=== PATIENT | female | born 1935 | race Caucasian/White ===

== ENCOUNTER 2018-08-29 07:22 | Day surgery (SDC) | payer MEDICARE, BC ==
[2018-08-26 15:22] VITALS: BMI 28.8
[~2018-08-29 07:22] MED LIST: HEPARIN SODIUM,PORCINE 5,000 UNIT/ML 1 ML VIAL SQ ONE; HYDROmorphone 0.5 MG/0.5 ML SYRINGE IVP PRN; LACTATED RINGERS 1,000 ML IV SCH; LIDOCAINE 1% 20 ML VIAL (10MG/ML) FOR IV START INTRADERMA PRN; ONDANSETRON 4 MG/2 ML VIAL IVP ONE; Pre Op ABX Message 1 EACH MISC MISCELLANE ONE
[2018-08-29 07:49] VITALS: TEMP 99.1
--- NOTE | 2018-08-29 08:34 | P.GSHP ---
History of Present Illness H&P Date: 08/29/18 Chief Complaint: Left chest wall mass. This is a 82-year-old female who presents today for biopsy of a left chest wall mass. Patient has developed a mass next to her fourth left rib. On the anterior chest wall. Past Medical History Past Medical History: Eye Disorder, Hearing Disorder / Deafness, Osteoarthritis (OA), Rheumatoid Arthritis (RA), Skin Disorder Additional Past Medical History / Comment(s): CONE DYSTROPHY SINDHU EYES. OVERACTIVE BLADDER. LUMP LT 4TH RIB AREA. History of Any Multi-Drug Resistant Organisms: None Reported Past Surgical History: Hysterectomy, Orthopedic Surgery Additional Past Surgical History / Comment(s): PARTIAL HYSTERECTOMY. SINDHU CTR X2. KNEE SCOPE. Past Anesthesia/Blood Transfusion Reactions: No Reported Reaction Smoking Status: Never smoker - Past Family History Mother Sister(s) Family Medical History: Cancer Medications and Allergies Home Medications Medication Instructions Recorded Confirmed Type Acetaminophen [Tylenol Extra 500 - 1,000 mg PO Q6H PRN 08/26/18 08/29/18 History Strength] Aspirin [Adult Low Dose Aspirin EC] 81 mg PO DAILY 08/26/18 08/26/18 History Methotrexate Sodium [Methotrexate] 25 mg PO TU 08/26/18 08/29/18 History Oxybutynin Chloride [Ditropan] 5 mg PO DAILY 08/26/18 08/29/18 History Allergies Allergy/AdvReac Type Severity Reaction Status Date / Time No Known Allergies Allergy Verified 08/26/18 14:59 Surgical - Exam Vital Signs Temp Pulse Resp BP Pulse Ox 99.1 F 106 H 18 132/64 95 08/29/18 07:48 08/29/18 07:48 08/29/18 07:48 08/29/18 07:48 08/29/18 07:48 - General well developed, no distress - Eyes PERRL - ENT normal pinna - Neck no masses - Respiratory 3 x 5 cm area of firmness along the left fourth rib normal expansion - Cardiovascular Rhythm: regular - Abdomen Abdomen: soft, non tender Assessment and Plan Assessment: Left chest wall mass. We'll perform excisional biopsy.
[2018-08-29] MEDS ORDERED: ePHEDrine SULFATE/0.9% NACL/PF 50 MG/5 ML SYRINGE IV ONE (08:56)
[2018-08-29] MEDS ORDERED: ceFAZolin 1,000 MG VIAL ONE (08:56)
[2018-08-29] MEDS ORDERED: MIDAZOLAM 2 MG/2 ML VIAL ONE (08:56)
[2018-08-29] MEDS ORDERED: LIDOCAINE 1% INJ 10MG/ML (20 ML MDV) ONE (08:56)
[2018-08-29] MEDS ORDERED: fentaNYL (PF) 50 MCG/ML 2 ML AMP ONE (08:56)
[2018-08-29] MEDS ORDERED: PROPOFOL 10 MG/ML 20 ML VIAL IV ONE (08:56)
[2018-08-29] MEDS ORDERED: BUPIVACAIN-EPI 0.25%-1:200,000 30 ML VIAL SQ ONE ×2 (09:13→09:23)
[2018-08-29] MEDS ORDERED: SODIUM CHLORIDE 0.9% 50 ML with ceFAZolin 2,000 MG IV ONE ×2 (09:23)
--- NOTE | 2018-08-29 10:14 | P.OP ---
Date of Procedure: 08/29/18 Preoperative Diagnosis: Left chest wall mass Postoperative Diagnosis: Deferred to pathology Procedure(s) Performed: Biopsy of left chest wall mass Anesthesia: AKIRA Surgeon: Bernardino Bond Estimated Blood Loss (ml): 5 Pathology: other (Left chest wall mass) Condition: stable Disposition: PACU Description of Procedure: The patient's placed the operative table in the supine position. She received general anesthesia. Her chest was prepped and draped usual fashion. Patient had a left chest wall mass located over the fourth rib. A skin incision was made. Using left cautery the subcutaneous tissue divided. The fascia of the pectoralis was divided. The pectoral muscles were spread and divided along the muscle fibers. The patient had a 3 x 5 cm chest mass. The mass was white in color and had to amorphous appearance. A large portion of the mass was divided using left cautery. It was impossible to remove the entire mass. The specimen sent to pathology. The fascia and muscles closed with 3-0 Vicryl suture once hemostasis was achieved. Skin was closed interrupted 3-0 Monocryl suture. Dermabond was applied. Patient was sent to recovery room stable condition.
[2018-08-29] MEDS ORDERED: ACETAMINOPHEN TAB 500 MG TAB PO ONE (11:14)
[2018-08-29 11:43] VITALS: BP 130/65; PULSE 52; RESP 18
== END 2018-08-29 11:58 | disposition home or self-care (01) ==
LOC: OR 07:22
PROVIDERS: ATTEND Surgery
DX: C83.32 Diffuse large B-cell lymphoma, intrathoracic lymph nodes (principal); H91.90 Unspecified hearing loss, unspecified ear; M19.90 Unspecified osteoarthritis, unspecified site; M06.9 Rheumatoid arthritis, unspecified; L98.9 Disorder of the skin and subcutaneous tissue, unspecified; H57.89 Other specified disorders of eye and adnexa; N32.81 Overactive bladder; N39.3 Stress incontinence (female) (male); Z79.82 Long term (current) use of aspirin; Z79.899 Other long term (current) drug therapy; Z90.710 Acquired absence of both cervix and uterus
CPT/HCPCS: 21550; J2250; J1644; J2405; J0690 ×2; J2001; J3010; J2704; 88305; 88341; 88342

== ENCOUNTER → 2018-09-12 | Outpatient (CLI) | payer MEDICARE, BC ==
--- NOTE | 2018-09-13 11:21 | ECHOF ---
Referral Reason:[id number] Encounter for other preprocedural examinat MEASUREMENTS -------- HEIGHT: 154.9 cm WEIGHT: 74.8 kg BP: 149/101 RVIDd: 2.7 cm (< 3.3) IVSd: 1.1 cm (0.6 - 1.1) LVIDd: 4.3 cm (3.9 - 5.3) LVPWd: 0.9 cm (0.6 - 1.1) IVSs: 1.6 cm LVIDs: 2.7 cm LVPWs: 1.3 cm LA Diam: 2.9 cm (2.7 - 3.8) LAESV Index (A-L): 19.55 ml/m Ao Diam: 2.9 cm (2.0 - 3.7) AV Cusp: 1.6 cm (1.5 - 2.6) MV EXCURSION: 10.412 mm (> 18.000) MV EF SLOPE: 75 mm/s (70 - 150) EPSS: 0.9 cm MV E Gerald: 0.74 m/s MV DecT: 340 ms MV A Gerald: 1.05 m/s MV E/A Ratio: 0.71 AV maxP.31 mmHg AV meanP.88 mmHg AR PHT: 743 ms RAP: 5.00 mmHg RVSP: 24.48 mmHg FINDINGS -------- Sinus rhythm. This was a technically adequate study. The left ventricular size is normal. There is borderline concentric left ventricular hypertrophy. Overall left ventricular systolic function is normal with, an EF between 60 - 65 %. The right ventricle is normal in size. Normal LA size by volume 22+/-6 ml/m2. The right atrium is normal in size. Aneurysmal Interatrial septum. There is mild aortic valve sclerosis. There is mild aortic regurgitation. Peak/mean gradient acro ss the Aortic Valve is 13.31mmHg / 5.88mmHg. The mitral valve leaflets are mildly thickened. Mild mitral annular calcification present. Mild tricuspid regurgitation present. Right ventricular systolic pressure is normal at < 35 mmHg. There is no pulmonic regurgitation present. The aortic root size is normal. Normal inferior vena cava with normal inspiratory collapse consistent with estimated right atrial pre ssure of 5 mmHg. There is no pericardial effusion. CONCLUSIONS -------- 1. Sinus rhythm. 2. This was a technically adequate study. 3. The left ventricular size is normal. 4. There is borderline concentric left ventricular hypertrophy. 5. Overall left ventricular systolic function is normal with, an EF between 60 - 65 %. 6. The right ventricle is normal in size. 7. Normal LA size by volume 22+/-6 ml/m2. 8. The right atrium is normal in size. 9. Aneurysmal Interatrial septum. 10. There is mild aortic valve sclerosis. 11. There is mild aortic regurgitation. 12. Peak/mean gradient across the Aortic Valve is 13.31mmHg / 5.88mmHg. 13. The mitral valve leaflets are mildly thickened. 14. Mild mitral annular calcification present. 15. Mild tricuspid regurgitation present. 16. Right ventricular systolic pressure is normal at < 35 mmHg. 17. There is no pulmonic regurgitation present. 18. The aortic root size is normal. 19. Normal inferior vena cava with normal inspiratory collapse consistent with estimated right atrial pressure of 5 mmHg. 20. There is no pericardial effusion. [employer]GER: Lise Veliz RDCS
== END ==
LOC: RADECHMAIN 14:50
PROVIDERS: ATTEND Internal Medicine Hematology & Oncology
DX: I08.2 Rheumatic disorders of both aortic and tricuspid valves (principal); I70.8 Atherosclerosis of other arteries
CPT/HCPCS: 93306

== ENCOUNTER → 2018-09-14 | Outpatient (CLI) | payer MEDICARE, BC ==
--- NOTE | 2018-09-18 09:41 | PE ---
[facility] medicine PET/CT HISTORY: Diffuse large B-cell lymphoma, initial Patient received 15 mCi F-18 FDG intravenously in delayed scanning performed from the skull base to t he mid thighs. Localization and attenuation correction CT scan was performed. No comparisons DLP 413.12 mGy centimeters Neck and chest: Neck is unremarkable. No evident adenopathy. Possible mucus retention cyst, inflammat ory changes are present in the bilateral maxillary sinuses. There is a large chest wall mass on the left extending into the breast there is abnormal soft tissue. Chest wall mass shows erosion of the fourth rib, rib destruction anteriorly. Mass measures approxima tely 7.8 x 4.3 cm in the axial plane and extends through the chest into the pleural surface as well a s into the left breast. There is associated hypermetabolic uptake, SUV is 21. No evident lung mass. A scending aorta is borderline aneurysmal at 4.3 cm. There are coronary artery calcifications, mitral a nnular calcification. No endobronchial lesion, pleural or pericardial effusion. Suspect a small hiata l hernia. ABDOMEN: No retroperitoneal adenopathy. No pelvic adenopathy. Uterus and adnexal structures are not s een. Surgical suture present along the anterior abdominal wall. No suspicious hypermetabolic uptake. Osseous structures: There is a focus of hypermetabolic uptake in the proximal metadiaphyseal region o f the right humerus, SUV is 9. Posterior right third rib shows a small focus of activity, SUV is 2.8. IMPRESSION: Findings compatible with lymphoma, possible metastasis to the proximal right humerus, pos terior right third rib. MRI of the right shoulder may be of benefit.
== END ==
LOC: RADPETMAIN 06:43
PROVIDERS: ATTEND Internal Medicine Hematology & Oncology
DX: C83.39 Diffuse large B-cell lymphoma, extranodal and solid organ sites (principal)
CPT/HCPCS: 78815; A9552

== ENCOUNTER 2018-09-30 07:45 | Day surgery (SDC) | payer MEDICARE, BC ==
[~2018-09-30 07:45] MED LIST changes: +DEXAMETHASONE SOD PHOSPHATE 10 MG/ML 1 ML VIAL IV ONE; -ONDANSETRON 4 MG/2 ML VIAL IVP ONE
[2018-09-30 08:17] VITALS: TEMP 97.4
--- NOTE | 2018-09-30 09:04 | P.GSHP ---
History of Present Illness H&P Date: 09/30/18 Chief Complaint: History of lymphoma This 82-year-old female who's recent diagnosis of lymphoma. Patient presents today for Port-A-Cath insertion Past Medical History Past Medical History: Eye Disorder, Hearing Disorder / Deafness, Osteoarthritis (OA), Rheumatoid Arthritis (RA), Skin Disorder Additional Past Medical History / Comment(s): CONE DYSTROPHY SINDHU EYES. OVERACTIVE BLADDER. LUMP LT 4TH RIB AREA-dx lymphoma Aug 2018 History of Any Multi-Drug Resistant Organisms: None Reported Past Surgical History: Hysterectomy, Orthopedic Surgery Additional Past Surgical History / Comment(s): Bx chest wall mass,PARTIAL HYSTERECTOMY. SINDHU CTR X2. KNEE SCOPE,sindhu cataracts Past Anesthesia/Blood Transfusion Reactions: No Reported Reaction Additional Past Anesthesia/Blood Transfusion Reaction / Comment(s): no hx blood transfusion Smoking Status: Never smoker - Past Family History Mother Sister(s) Family Medical History: Cancer Medications and Allergies Home Medications Medication Instructions Recorded Confirmed Type Acetaminophen [Tylenol Extra 500 - 1,000 mg PO Q6H PRN 08/26/18 09/30/18 History Strength] Aspirin [Adult Low Dose Aspirin EC] 81 mg PO DAILY 08/26/18 09/30/18 History Methotrexate Sodium [Methotrexate] 25 mg PO TU 08/26/18 09/30/18 History Oxybutynin Chloride [Ditropan] 5 mg PO DAILY 08/26/18 09/30/18 History Calcium Carbonate [Calcium] 600 mg PO BID 09/26/18 09/30/18 History Cranberry Fruit Extract [Cranberry] 200 mg PO DAILY 09/26/18 09/30/18 History Cranberry Fruit Extract [Cranberry] 200 mg PO DAILY 09/26/18 09/30/18 History Cyanocobalamin [Vitamin B-12] 500 mcg PO DAILY 09/26/18 09/30/18 History Folic Acid 1,200 mcg PO DAILY 09/26/18 09/30/18 History Lutein 20 mg PO DAILY 09/26/18 09/30/18 History Magnesium 500 mg PO DAILY 09/26/18 09/30/18 History Milk Thistle 1,000 mg PO DAILY 09/26/18 09/30/18 History [place]-3/Dha/Epa/Fish Oil [Fish Oil 300 mg PO DAILY 09/26/18 09/30/18 History 500 mg Softgel] Potassium 99 mg PO DAILY 09/26/18 09/30/18 History Turmeric Root Extract [Turmeric] 500 mg PO DAILY 09/26/18 09/30/18 History Ubidecarenone [Co Q-10] 100 mg PO DAILY 09/26/18 09/30/18 History Vitamin B Complex 1 each PO DAILY 09/26/18 09/30/18 History Vitamin E 400 unit PO DAILY 09/26/18 09/30/18 History Allergies Allergy/AdvReac Type Severity Reaction Status Date / Time No Known Allergies Allergy Verified 09/30/18 08:15 Surgical - Exam Vital Signs Temp Pulse Resp BP Pulse Ox 97.4 F L 108 H 16 161/72 94 L 09/30/18 08:09 09/30/18 08:09 09/30/18 08:09 09/30/18 08:09 09/30/18 08:09 - General well developed, well nourished - Eyes PERRL - ENT normal pinna - Neck no masses - Respiratory normal expansion - Cardiovascular Rhythm: regular - Abdomen Abdomen: soft, non tender Assessment and Plan Assessment: Lymphoma. We'll perform Port-A-Cath insertion.
[2018-09-30] MEDS ORDERED: fentaNYL (PF) 50 MCG/ML 2 ML AMP ONE (09:08)
[2018-09-30] MEDS ORDERED: PROPOFOL 10 MG/ML 20 ML VIAL IV ONE (09:08)
[2018-09-30] MEDS ORDERED: KETAMINE 10 MG/ML 20 ML VIAL ONE (09:08)
[2018-09-30] MEDS ORDERED: MIDAZOLAM 2 MG/2 ML VIAL ONE (09:08)
[2018-09-30] MEDS ORDERED: HEPARIN SODIUM,PORCINE 100 UNIT/ML 5 ML VIAL IV ONE ×2 (09:33→09:39)
[2018-09-30] MEDS ORDERED: BUPIVACAIN-EPI 0.25%-1:200,000 30 ML VIAL SQ ONE ×2 (09:33→09:39)
[2018-09-30] MEDS ORDERED: IOPAMIDOL-370 50ML BTL MISCELLANE ONE ×2 (09:34→09:39)
[2018-09-30 10:09] VITALS: PULSE 84
--- NOTE | 2018-09-30 10:10 | FL ---
Fluoroscopy History: port a cath 3 sec fluoro. 1 image scanned.
[2018-09-30 10:40] VITALS: BP 134/73; RESP 18
--- NOTE | 2018-09-30 10:41 | P.OP ---
Date of Procedure: 09/30/18 Preoperative Diagnosis: Lymphoma Postoperative Diagnosis: Lymphoma Procedure(s) Performed: Insertion of right subclavian Port-A-Cath Anesthesia: MAC Surgeon: Bernardino Bond Estimated Blood Loss (ml): 5 Pathology: none sent Condition: stable Disposition: PACU Description of Procedure: PROCEDURE: The patient was placed on the operating table in the supine position. She received MAC anesthetic. The [right] chest was prepped and draped in the usual sterile fashion. The skin underneath the right clavicle was anesthetized with 1% Xylocaine and using Seldinger technique, the right subclavian vein was cannulized. The wire was placed through the needle and positioned under fluoroscopy. Next, the needle was removed and the port site was anesthetized with 1% Xylocaine. Skin was incised with #15 blade and port pocket was made using blunt and sharp dissection. Following this the catheter was attached to the sport and the port was flushed. The port was positioned into the pocket site and was secured with 3-0 Vicryl suture. The catheter was then brought out through the wire site and then the dilator sheath was placed over the wire and the dilator and the wire were removed. The catheter was placed through the sheath and the sheath was removed. The port was flushed with hep-lock solution. Skin was closed with interrupted 3-0 Vicryl sutures. Steri-Strips were applied. The patient tolerated the procedure well. The patient was sent to recovery room for chest x-ray after the procedure.
--- NOTE | 2018-09-30 10:42 | XR ---
EXAMINATION TYPE: XR chest 1V portable DATE OF EXAM: 09/30/2018 HISTORY: Line placement COMPARISON: None. TECHNIQUE: Single view of the chest is submitted. FINDINGS: Right-sided central venous line subclavian approach demonstrates its distal tip overlying the SVC. Th ere is no evidence for pneumothorax. Demonstrated are scattered senescent parenchymal change. Small patchy density right medial lung base may reflect underlying infiltrate. The heart is stable. Hilar and mediastinal structures are within normal limits. Degenerative changes are seen of the dorsal spine. IMPRESSION: 1. Central venous line as noted.
== END 2018-09-30 11:22 | disposition home or self-care (01) ==
LOC: OR 07:45
PROVIDERS: ATTEND Surgery
DX: C85.90 Non-Hodgkin lymphoma, unspecified, unspecified site (principal); H91.90 Unspecified hearing loss, unspecified ear; M06.9 Rheumatoid arthritis, unspecified; N32.81 Overactive bladder; H35.53 Other dystrophies primarily involving the sensory retina; M19.90 Unspecified osteoarthritis, unspecified site; Z90.710 Acquired absence of both cervix and uterus; Z79.82 Long term (current) use of aspirin; Z79.899 Other long term (current) drug therapy
CPT/HCPCS: 36561; 77001; 71045; C1788; J2250; J1644; J1642; J1100; J3010; J2704; Q9967

== ENCOUNTER → 2018-11-09 | Outpatient (CLI) | payer MEDICARE, BC ==
--- NOTE | 2018-11-09 15:18 | PE ---
EXAMINATION TYPE: PET CT fusion skull to thigh DATE OF EXAM: 11/09/2018 COMPARISON: Prior PET/CT September 14, 2018. HISTORY: Lymphoma diagnosed left chest 2018 completed chemotherapy October 28, 2018. TECHNIQUE: Following the intravenous administration of 12.74 mCi of F-18 FDG, whole body images are performed from the skull base to the midthigh. Images are reviewed on the computer in the coronal, a xial, and sagittal planes. Reconstructed rotating images are created on independent workstation and reviewed on the computer. A noncontrast CT is performed in conjunction with the PET scan. SCAN: Subsequent Scan FINDINGS: MEAN SUV MEDIASTINUM: 1.07 MEAN SUV LIVER: 2.02 SKULL BASE AND NECK: No new areas of suspicious hypermetabolic uptake. CHEST, MEDIASTINUM, AND HILAR REGION: There is marked interval improvement in size and hypermetabolic uptake of left medial chest wall mass that was invading pleura on prior study, measures roughly 5.0 x 1.8 cm current study image 77 with mild residual hypermetabolic uptake, max SUV is 2.91. Soft tissu e density extending superiorly and anteriorly is redemonstrated extending to skin surface consistent with known neoplasm. No new hypermetabolic masses or suspicious adenopathy. ABDOMEN AND PELVIS: No splenic or liver enlargement identified. Prominent left hepatic lobe redemonst rated. No new hypermetabolic uptake is identified. No new suspicious adenopathy is seen. Presumed los s of urine inferior to urethral orifice. OSSEOUS STRUCTURES: No suspicious hypermetabolic uptake is present OTHER CT: Redemonstration of S-shaped scoliosis. New right subclavian Mediport catheter terminating in SVC. Mild mucosal thickening bilateral maxillary sinuses with small mucous retention cyst or polyp in the inferior right maxillary sinus all redemonstrated. Mild to moderate generalized atrophy and chronic small vessel ischemic change in visualized brain par enchyma. Ascending aorta measures up to 4.2 cm in diameter on axial image 77 not significant change from prior . Coronary artery calcification is redemonstrated which is noted marker for underlying coronary arter y disease. Mild to moderate calcified plaque of aorta extends into branch vessels. Suspect sutures in the lower abdomen anterior abdominal wall in horizontal fashion. Scattered pelvic phleboliths are seen. IMPRESSION: Marked interval improvement in primary tumor or lymphoma left anterior medial chest wall and proximal right humeral lesion. No new suspicious masses or adenopathy identified.
== END | disposition home or self-care (01) ==
LOC: RADPETMAIN 09:06
PROVIDERS: ATTEND Internal Medicine Hematology & Oncology
DX: C83.39 Diffuse large B-cell lymphoma, extranodal and solid organ sites (principal); Z92.21 Personal history of antineoplastic chemotherapy
CPT/HCPCS: 78815; A9552

== ENCOUNTER → 2019-01-30 | Outpatient (CLI) | payer MEDICARE, BC ==
[2019-01-30 14:05] LABS: African American GFR (CKD) >90 (>60 ml/min/1.73 sqM); Blood Urea Nitrogen 12 mg/dL (7-17)
--- NOTE | 2019-01-30 16:35 | CT ---
EXAMINATION TYPE: CT ChestAbdPelvis w con DATE OF EXAM: 01/30/2019 COMPARISON: PET/CT November 09, 2018 and older PET/CT September 14, 2018. Completed chemotherapy October 28, 2018. HISTORY: Lymphoma, observe for mets. Originally diagnosed left chest August 29, 2018 completed chemo therapy in January CT DLP: 1237 mGycm. Automated Exposure Control for Dose Reduction was Utilized. CONTRAST: CT scan of the thorax, abdomen and pelvis is performed with oral and with IV Contrast, patient inject ed with 100 mL of Isovue 300. FINDINGS: LUNGS: The lungs are grossly clear, there is no concerning parenchymal mass or nodule identified. T here is no pleural effusion or pneumothorax seen. The tracheobronchial tree is patent. MEDIASTINUM: There are no greater than 1 cm hilar or mediastinal lymph nodes. No pericardial effusi on is seen. OTHER: No suspicious axillary adenopathy. Small residual oval soft tissue focus medial left breast m easuring 2.0 x 0.6 cm remains present axial image 16 significantly improved from last 2 studies. LIVER/GB: No significant abnormality is appreciated. PANCREAS: No significant abnormality is seen. SPLEEN: Spleen remains mildly enlarged at 13.4 cm coronal image 66. ADRENALS: No significant abnormality is seen. KIDNEYS: No significant abnormality is seen. BOWEL: Small hiatal hernia is present. GENITAL ORGANS: Scattered pelvic phleboliths. Uterus is surgically absent. LYMPH NODES: No greater than 1cm abdominal or pelvic lymph nodes are appreciated. OSSEOUS STRUCTURES S-shaped scoliotic curvature with mild multilevel spurring. Multilevel disc space narrowing and vacuum disc phenomenon in the lumbar spine. Mild to moderate compression fracture invol ving the superior T10 endplate is new from most recent PET/CT. OTHER: Mild to moderate calcified plaque of aorta extends into branch vessels. IMPRESSION: Continued improvement in medial left anterior chest wall mass or neoplasm. No new adenopa thy or suspicious masses identified..
== END | disposition home or self-care (01) ==
LOC: RADPROMAIN 13:18
PROVIDERS: ATTEND Internal Medicine Hematology & Oncology
DX: C83.39 Diffuse large B-cell lymphoma, extranodal and solid organ sites (principal)
CPT/HCPCS: 82565; 84520; 71260; 74177; 36415; J1642; Q9967

== ENCOUNTER → 2019-05-05 | Outpatient (CLI) | payer MEDICARE, BC ==
--- NOTE | 2019-05-05 10:40 | CT ---
EXAMINATION TYPE: CT ChestAbdPelvis w con DATE OF EXAM: 05/05/2019 COMPARISON: CT January 30, 2019. PET/CT May 12, 2019 and older PET/CT September 14, 2018 HISTORY: Non-Hodgkin lymphoma progress study. CT DLP: 1695 mGycm. Automated Exposure Control for Dose Reduction was Utilized. CONTRAST: CT scan of the thorax, abdomen and pelvis is performed with oral and with IV Contrast, patient inject ed with 100ml mL of Isovue 300. FINDINGS: LUNGS: Stable subcentimeter scarlike opacity right midlung laterally axial image 41. The lungs are gr ossly clear, there is no concerning new parenchymal mass or nodule identified. There is no pleural effusion or pneumothorax seen. The tracheobronchial tree is patent. MEDIASTINUM: There are no greater than 1 cm hilar or mediastinal lymph nodes. No cardiomegaly or pe ricardial effusion is seen. Coronary artery calcification is redemonstrated which is noted marker fo r underlying coronary artery disease. OTHER: Soft tissue lesion over the superior medial left breast near axial image 9 through 11 shows pe rsistent decreased size with only slight level 11 x 3 mm oval nodularity remaining present on image 9 . Stable right internal jugular Mediport catheter terminating in SVC. LIVER/GB: No significant abnormality is appreciated. PANCREAS: No significant abnormality is seen. SPLEEN: Spleen size within normal limits current study felt slightly less prominent versus prior stud ies. ADRENALS: No significant abnormality is seen. KIDNEYS: No significant abnormality is seen. BOWEL: Small hiatal hernia is redemonstrated. GENITAL ORGANS: Uterus is surgically absent or markedly atrophic. Scattered pelvic phleboliths are ag ain seen. LYMPH NODES: No greater than 1cm abdominal or pelvic lymph nodes are appreciated. OSSEOUS STRUCTURES: S-shaped scoliosis with moderate multilevel spurring is again seen. Multilevel va cuum disc phenomenon in the lumbar spine. Mild height loss or chronic compression superior T10 level with sclerosis redemonstrated without interval progression OTHER: Mild to moderate calcified plaque of the aorta extending to the iliac branch vessels is redemo nstrated. IMPRESSION: Continued improvement in left medial anterior chest wall mass or neoplasm. No new mass or adenopathy identified.
== END | disposition home or self-care (01) ==
LOC: RADPROMAIN 07:42
PROVIDERS: ATTEND Internal Medicine Hematology & Oncology
DX: Z03.89 Encounter for observation for other suspected diseases and conditions ruled out (principal); C83.39 Diffuse large B-cell lymphoma, extranodal and solid organ sites; Z95.828 Presence of other vascular implants and grafts
CPT/HCPCS: 82565; 84520; 71260; 74177; J1642; Q9967 ×2

== ENCOUNTER → 2019-08-04 | Outpatient (CLI) | payer MEDICARE, BC ==
--- NOTE | 2019-08-04 12:40 | CT ---
EXAMINATION TYPE: CT ChestAbdPelvis w con DATE OF EXAM: 08/04/2019 COMPARISON: 05/05/2019 HISTORY: Lymphoma CT DLP: 1128.2 mGycm CONTRAST: CT scan of the chest, abdomen and pelvis is performed with Oral Contrast and with IV Contrast, patien t injected with 80 mL of Isovue 300. CT Chest: LUNGS: The lungs are clear and free of infiltrate or atelectasis. No pulmonary nodule or mass is det ected. No pleural effusion or CT evidence of interstitial lung disease. MEDIASTINUM: Thoracic aorta is of normal caliber. The heart is not enlarged. No evidence for media stinal mass or adenopathy. HILAR STRUCTURES: No evidence for mass. No hilar adenopathy is appreciated. OTHER: No chest wall lesion identified at this time. CONTRAST CT ABDOMEN AND PELVIS FINDINGS: LIVER/GB: No calcified gallstones. No space occupying hepatic lesion. Biliary tree is of normal ca liber. PANCREAS: No inflammation. No distinct mass. SPLEEN: Spleen measures 12.7 cm in craniocaudal dimension. No lesion seen. ADRENALS: No nodule. No thickening. KIDNEYS/BLADDER: No hydronephrosis. No nephrolithiasis. No disctinct renal mass. BOWEL: Normal appendix. Normal bowel caliber. No inflammation. GENITAL ORGANS: No gross abnormality. LYMPH NODES: No greater than 1cm abdominal or pelvic lymph nodes are appreciated. AORTA: No significant abnormality. OSSEOUS STRUCTURES: No significant abnormality is seen. OTHER: No significant additional abnormality is seen. IMPRESSION: 1. No evidence for adenopathy at this time. Recently described chest wall lesion is no longer visuali zed this time.
== END | disposition home or self-care (01) ==
LOC: RADPROMAIN 10:16
PROVIDERS: ATTEND Internal Medicine Hematology & Oncology
DX: C83.39 Diffuse large B-cell lymphoma, extranodal and solid organ sites (principal)
CPT/HCPCS: 82565; 84520; 71260; 74177; 36415; Q9967 ×2

== ENCOUNTER → 2020-02-03 | Outpatient (CLI) | payer MEDICARE, BC ==
--- NOTE | 2020-02-03 21:47 | CT ---
EXAMINATION TYPE: CT ChestAbdPelvis w con DATE OF EXAM: 02/03/2020 INDICATION: Follow up for non-Hodgkin's lymphoma. COMPARISON: 08/04/2019 CT DLP: 1637 mGycm CONTRAST: Performed with Oral Contrast and with IV Contrast, patient injected with 100ml mL of Isovue 300. TECHNIQUE: Axial images at 5 mm thick sections. Reconstructed images in the coronal plane. Delayed images through the kidneys. FINDINGS: CT CHEST: Portion of the thyroid visualized is normal. Some minimal streak opacities likely atelectasis within the dependent portions of the lung bases. Sma ll area of pneumonitis within the right peripheral midlung. No enlarged mediastinal or hilar adenopathy is evident. The ascending aorta diameter at the level of the main pulmonary artery is 3.8 cm. The main pulmonary artery diameter at the bifurcation is 2.[address] ABDOMEN: Liver: Normal Spleen: 1 Pancreas: Normal Adrenal glands: The adrenal glands are normal. Gallbladder: Normal Kidneys: No masses are evident. No hydronephrosis is present. No cysts are present. Delayed images were obtained through the kidneys, which remain unremarkable. Aorta: Vascular calcification is within the aorta. Inferior vena cava: Normal. CT PELVIS: Loops of bowel within the abdomen and pelvis are normal. There are loops of bowel which are incom pletely distended or lack oral contrast limiting their evaluation. Appendix: Not clearly identified. No suspicious tubular structure or inflammatory changes evident. Urinary bladder: Normal. Genitourinary structures: Uterus is absent. There is a small amount of tissue present within the adne xa bilaterally. Suspicious mass or cyst is not identified. Findings appear less prominent than compar rosalba. Osseous structures: No suspicious lytic or sclerotic lesions. Facet degenerative changes present with in the lumbar spine. Lymphadenopathy: Axillary regions appear normal. No enlarged mediastinal or hilar adenopathy is evide nt. No retrocrural adenopathy is evident. Periaortic retrocaval areas are normal. Obturator canals ar e normal. Iliac chain and inguinal regions are normal. IMPRESSIONS: 1. No suspicious abnormality to suggest recurrent or metastatic lymphoma.
== END | disposition home or self-care (01) ==
LOC: RADPROMAIN 13:20
PROVIDERS: ATTEND Internal Medicine Hematology & Oncology
DX: C83.39 Diffuse large B-cell lymphoma, extranodal and solid organ sites (principal)
CPT/HCPCS: 82565; 84520; 71260; 74177; 36415; J1642; Q9967

== ENCOUNTER → 2020-06-16 | Outpatient (CLI) | payer MEDICARE, BC ==
[2020-06-16 10:29] LABS: African American GFR (CKD) >90 (>60 ml/min/1.73 sqM); Blood Urea Nitrogen 16 mg/dL (7-17); Non-African American GFR(CKD) 81 (>60 ml/min/1.73 sqM)
--- NOTE | 2020-06-16 12:10 | CT ---
EXAMINATION TYPE: CT ChestAbdPelvis w con DATE OF EXAM: 06/16/2020 COMPARISON: Prior CT February 03, [address] and PET/CT studies HISTORY: Lymphoma progress study. Initially diagnosed left chest end of 2017. Completed chemotherapy January 2019 CT DLP: 1199.5 mGycm. Automated Exposure Control for Dose Reduction was Utilized. CONTRAST: CT scan of the thorax, abdomen and pelvis is performed what oral and with IV Contrast, patient inject ed with 100 mL of Isovue 300. FINDINGS: LUNGS: The lungs remain grossly clear, there is no concerning new parenchymal mass or nodule identifi ed. There is no pleural effusion or pneumothorax seen. The tracheobronchial tree is patent. MEDIASTINUM: There are no new greater than 1 cm hilar or mediastinal lymph nodes. No cardiomegaly o r pericardial effusion is seen. 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 OTHER: Stable right subclavian Mediport catheter. No recurrent suspicious mass in the left breast. St able sclerosis to the anterior left fourth rib axial image 23. LIVER/GB: No significant abnormality is appreciated. PANCREAS: No significant abnormality is seen. SPLEEN: No significant abnormality is seen. ADRENALS: No significant abnormality is seen. KIDNEYS: No significant abnormality is seen. BOWEL: Oral contrast reaches level of the right colon. No suspicious small large bowel dilatation. GENITAL ORGANS: Uterus is surgically absent. Scattered bilateral pelvic phleboliths. LYMPH NODES: No greater than 1cm abdominal or pelvic lymph nodes are appreciated. OSSEOUS STRUCTURES: S-shaped scoliosis. Multilevel spurring in the spine. Facet arthropathy lower lum bar levels. Moderate joint space loss right hip and severe joint space loss with subchondral cystic c hanges left hip. OTHER: Overlying horizontal sutures along the rectus muscles in the pelvis redemonstrated. Tiny fat-c ontaining umbilical hernia. Mild to moderate mixed plaque in the aorta extends into branch vessels. IMPRESSION: No suspicious new mass or recurrent adenopathy to suggest active lymphoma recurrence.
== END | disposition home or self-care (01) ==
LOC: RADCTMAIN 09:28
PROVIDERS: ATTEND Internal Medicine Hematology & Oncology
DX: Z03.89 Encounter for observation for other suspected diseases and conditions ruled out (principal); C83.39 Diffuse large B-cell lymphoma, extranodal and solid organ sites
CPT/HCPCS: 82565; 84520; 71260; 74177; J1642; Q9967

== ENCOUNTER → 2020-10-12 | Outpatient (CLI) | payer MEDICARE, BC ==
--- NOTE | 2020-10-12 17:17 | CT ---
EXAMINATION TYPE: CT ChestAbdPelvis w con DATE OF EXAM: 10/12/2020 COMPARISON: Prior CT chest abdomen pelvis 06/16/2020 HISTORY: Non Hodgkins lymphoma. CT DLP: 1864 mGycm Automated exposure control for dose reduction was used. CONTRAST: CT scan of the chest, abdomen and pelvis is performed with Oral Contrast and with IV Contrast, patien t injected with 100 mL of Isovue M300. FINDINGS: There is a port present LUNGS: The lungs are grossly clear, there is no concerning parenchymal mass or nodule identified. T here is no pleural effusion or pneumothorax seen. The tracheobronchial tree is patent. MEDIASTINUM: There are no greater than 1 cm hilar or mediastinal lymph nodes. No pericardial effusi on is seen. AORTA: No significant abnormality is seen. OTHER: Metallic coils are present across the lower abdominal wall anteriorly. LIVER/GB: No significant abnormality is appreciated. PANCREAS: No significant abnormality is seen. SPLEEN: No significant abnormality is seen. ADRENALS: No significant abnormality is seen. KIDNEYS: No significant abnormality is seen. REPRODUCTIVE ORGANS: Uterus is absent, ovaries are unremarkable. BOWEL: No significant abnormality is seen. FREE AIR: No Free Air visible. ASCITES: None seen. RETROPERITONEAL ADENOPATHY: No retroperitoneal adenopathy is seen. LYMPH NODES: No greater than 1 cm abdominal or pelvic lymph nodes are appreciated. URINARY BLADDER: No significant abnormality is seen. PELVIC ADENOPATHY: None visualized. OSSEOUS STRUCTURES: No significant interval change, there is a spinal curvature, disc change is exte nsive is seen. IMPRESSION: No evident recurrence.
== END | disposition home or self-care (01) ==
LOC: RADPROMAIN 10:20
PROVIDERS: ATTEND Internal Medicine Hematology & Oncology
DX: C83.39 Diffuse large B-cell lymphoma, extranodal and solid organ sites (principal)
CPT/HCPCS: 82565; 84520; 71260; 74177; J1642; Q9967 ×2

== ENCOUNTER → 2021-05-03 | Outpatient (CLI) | payer MEDICARE, BC ==
--- NOTE | 2021-05-04 09:35 | CT ---
EXAMINATION TYPE: CT ChestAbdPelvis w con DATE OF EXAM: 05/03/2021 COMPARISON: CT 10/12/2020 HISTORY: f/u lymphoma CT DLP: 1234.7 mGycm Automated exposure control for dose reduction was used. CONTRAST: CT scan of the chest, abdomen and pelvis is performed with Oral Contrast and with IV Contrast, patien t injected with 100 mL of Isovue 300. FINDINGS: Postoperative changes are noted along the anterior abdominal wall inferiorly and anteriorly . There is a right-sided Port-A-Cath which courses via subclavian approach, distal tip in the superio r vena cava LUNGS: The lungs are stable, there is no concerning parenchymal mass or nodule identified. There is no pleural effusion or pneumothorax seen. The tracheobronchial tree is patent. MEDIASTINUM: There are no greater than 1 cm hilar or mediastinal lymph nodes. No pericardial effusi on is seen. AORTA: No significant abnormality is seen. OTHER: No additional significant abnormality is seen. LIVER/GB: No significant abnormality is appreciated. PANCREAS: No significant abnormality is seen. SPLEEN: No significant abnormality is seen. ADRENALS: No significant abnormality is seen. KIDNEYS: No significant abnormality is seen. REPRODUCTIVE ORGANS: Patient is post hysterectomy, ovaries thought to be stable. BOWEL: No significant abnormality is seen. FREE AIR: No Free Air visible. ASCITES: None seen. RETROPERITONEAL ADENOPATHY: No retroperitoneal adenopathy is seen. LYMPH NODES: No greater than 1 cm abdominal or pelvic lymph nodes are appreciated. URINARY BLADDER: No significant abnormality is seen. PELVIC ADENOPATHY: None visualized. OSSEOUS STRUCTURES: No significant interval change, there is a scoliosis, degenerative disc change, facet arthropathy similar to prior. IMPRESSION: Stable exam, no significant abnormality evident
== END | disposition home or self-care (01) ==
LOC: RADPROMAIN 13:51
PROVIDERS: ATTEND Internal Medicine Hematology & Oncology
DX: C85.90 Non-Hodgkin lymphoma, unspecified, unspecified site (principal)
CPT/HCPCS: 82565; 84520; 71260; 74177; 36415; J1642; Q9967

== ENCOUNTER → 2021-11-01 | Outpatient (CLI) | payer MEDICARE, BC ==
--- NOTE | 2021-11-01 15:52 | CT ---
EXAMINATION TYPE: CT ChestAbdPelvis w con DATE OF EXAM: 11/01/2021 COMPARISON: Most recent CT May 03, 2021 and older studies HISTORY: f/u lymphoma. Initially diagnosed left chest end of 2018. CT DLP: 1145.2 mGycm. Automated Exposure Control for Dose Reduction was Utilized. CONTRAST: CT scan of the thorax, abdomen and pelvis is performed with oral and with IV Contrast, patient inject ed with 100 mL of Isovue 300. FINDINGS: LUNGS: Some dependent atelectasis bilateral lower lobes is now present. There is no concerning new gr eater than 5 mm parenchymal mass or nodule identified. There is no pleural effusion or pneumothorax seen. The tracheobronchial tree is patent. MEDIASTINUM: There are no new greater than 1 cm hilar or mediastinal lymph nodes. No cardiomegaly o r pericardial effusion is seen. 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 Coronary artery calcification is redemonstrated along with calcification level of the mitral valve. OTHER: Stable right subclavian Mediport catheter. No recurrent suspicious mass in the left breast. St able sclerosis to the anterior left fourth rib axial image 23. LIVER/GB: No significant abnormality is appreciated. PANCREAS: No significant abnormality is seen. SPLEEN: No significant abnormality is seen. ADRENALS: No significant abnormality is seen. KIDNEYS: No significant abnormality is seen. BOWEL: Oral contrast reaches level of the left colon. No suspicious small or large bowel dilatation. GENITAL ORGANS: Uterus is surgically absent. Remnant normal size ovaries redemonstrated. Scattered bi lateral pelvic phleboliths. LYMPH NODES: No new greater than 1cm abdominal or pelvic lymph nodes are appreciated. OSSEOUS STRUCTURES: S-shaped scoliosis redemonstrated. Multilevel spurring in the spine. Facet arthro azam lower lumbar levels. Moderate joint space loss right hip and severe joint space loss with subch ondral cystic changes left hip. OTHER: Overlying horizontal sutures along the rectus muscles in the pelvis redemonstrated. Tiny fat-c ontaining umbilical hernia. Mild mixed plaque in the aorta extends into branch vessels. IMPRESSION: No suspicious new mass or recurrent adenopathy to suggest active lymphoma recurrence.
== END | disposition home or self-care (01) ==
LOC: RADPROMAIN 13:50
PROVIDERS: ATTEND Internal Medicine Hematology & Oncology
DX: C83.39 Diffuse large B-cell lymphoma, extranodal and solid organ sites (principal)
CPT/HCPCS: 82565; 84520; 71260; 74177; 36415; J1642; Q9967

== ENCOUNTER → 2022-04-19 | Outpatient (CLI) | payer MEDICARE, BC ==
--- NOTE | 2022-04-19 13:04 | CT ---
EXAMINATION TYPE: CT ChestAbdPelvis w con DATE OF EXAM: 04/19/2022 INDICATION: Lymphoma COMPARISON: 11/01/2021 CT DLP: 1326.5 mGycm CONTRAST: Performed with Oral Contrast and with IV Contrast, patient injected with 100 mL of Isovue 300. TECHNIQUE: Axial images at 5 mm thick sections. Reconstructed images in the coronal plane. Delayed images through the kidneys. FINDINGS: CT CHEST: Portion of the thyroid visualized is normal. No suspicious lung nodules or focal infiltrates are present. No enlarged mediastinal or hilar adenopathy is evident. The ascending aorta diameter at the level of the main pulmonary artery is 3.8 cm. The main pulmonary artery diameter at the bifurcation is 2.7 cm. Some mild coronary artery calcification is likely pres ent. CT ABDOMEN: Liver: Normal Spleen: Normal Pancreas: Normal Adrenal glands: The adrenal glands are normal. Gallbladder: Normal Kidneys: No masses are evident. No hydronephrosis is present. No cysts are present. Delayed images were obtained through the kidneys, which remain unremarkable. Aorta: Vascular calcification is within the aorta. Inferior vena cava: Normal. CT PELVIS: Loops of bowel within the abdomen and pelvis are normal. There are loops of bowel which are incom pletely distended or lack oral contrast limiting their evaluation. Appendix: Not identified. No dilated tubular structure or inflammatory change. Urinary bladder: Normal. Genitourinary structures: Uterus and ovaries are not identified. Osseous structures: Degenerative changes are through the scoliotic lumbar and thoracic spine. Degener ative disc changes within the lumbar spine. No suspicious lytic or sclerotic lesions are. Lymphadenopathy: No suspicious enlarged lymphadenopathy is evident within the abdomen or pelvis. IMPRESSIONS: 1. Degenerative changes through the scoliotic thoracic and lumbar spine. 2. No suspicious acute CT findings. 3. No suspicious changes of recurrent or metastatic lymphoma.
== END | disposition home or self-care (01) ==
LOC: RADPROMAIN 08:16
PROVIDERS: ATTEND Internal Medicine Hematology & Oncology
DX: C83.39 Diffuse large B-cell lymphoma, extranodal and solid organ sites (principal); Z03.89 Encounter for observation for other suspected diseases and conditions ruled out; M41.85 Other forms of scoliosis, thoracolumbar region
CPT/HCPCS: 82565; 84520; 71260; 74177; J1642; Q9967 ×2

== ENCOUNTER → 2022-11-01 | Outpatient (CLI) | payer MEDICARE, BC ==
--- NOTE | 2022-11-01 12:51 | CT ---
EXAMINATION TYPE: CT ChestAbdPelvis w con DATE OF EXAM: 11/01/2022 COMPARISON: Most recent CT April 19, 2022 and older studies HISTORY: h/o lymphoma. Initially diagnosed left chest end of 2018. CT DLP: 1839 mGycm. Automated Exposure Control for Dose Reduction was Utilized. CONTRAST: CT scan of the thorax, abdomen and pelvis is performed with oral and with IV Contrast, patient inject ed with 100 mL of Isovue 300. FINDINGS: LUNGS: Some patchy dependent atelectasis bilateral lung bases is now present. There is no concerning new greater than 5 mm parenchymal mass or nodule identified. There is no pleural effusion or pneumo thorax seen. The tracheobronchial tree is patent. MEDIASTINUM: There are more prominent mediastinal lymph nodes. For reference, there is 1.4 x 1.3 cm r ight tracheobronchial lymph node axial image 20 on current study. No cardiomegaly or pericardial effu esteban is seen. Roughly 3.9 cm aneurysm ascending aortic aneurysm axial images 25 not significantly ernesto nged from prior studies accounting for technical differences. Coronary artery calcification is redemonstrated along with calcification at the level of the mitral v alve. OTHER: Stable right subclavian Mediport catheter partially imaged. No recurrent suspicious mass in th e left breast. Stable sclerosis to the anterior left fourth rib axial image 25 current study. LIVER/GB: No significant abnormality is appreciated. PANCREAS: No significant abnormality is seen. SPLEEN: No significant abnormality is seen. ADRENALS: No significant abnormality is seen. KIDNEYS: No significant abnormality is seen. BOWEL: Oral contrast reaches level of the left colon. No suspicious small or large bowel dilatation. GENITAL ORGANS: Uterus is surgically absent. Remnant normal size ovaries are redemonstrated. Scattere d small bilateral pelvic phleboliths are again seen. LYMPH NODES: No new greater than 1cm abdominal or pelvic lymph nodes are appreciated. OSSEOUS STRUCTURES: S-shaped scoliosis redemonstrated. Multilevel spurring in the spine. Facet arthro azam lower lumbar levels. Multilevel disc space narrowing and endplate sclerosis in the lumbar spine redemonstrated. Moderate joint space loss right hip and severe joint space loss with subchondral cys tic changes left hip is again seen. OTHER: Overlying horizontal sutures along the rectus muscles in the pelvis redemonstrated. Tiny fat-c ontaining umbilical hernia redemonstrated. Mild to moderate calcified plaque in the distal aorta exte nds into branch vessels. IMPRESSION: More prominent mediastinal lymph nodes including now slightly enlarged right tracheobronc hial lymph node. Finding is nonspecific but recurrent neoplasm cannot be excluded. At minimum continu ed short term imaging monitoring is advised. Consider PET/CT follow-up to further evaluate.
== END | disposition home or self-care (01) ==
LOC: RADPROMAIN 10:17
PROVIDERS: ATTEND Internal Medicine Hematology & Oncology
DX: C83.39 Diffuse large B-cell lymphoma, extranodal and solid organ sites (principal); R59.0 Localized enlarged lymph nodes
CPT/HCPCS: 82565; 84520; 71260; 74177; J1642; Q9967

== ENCOUNTER → 2023-01-29 | Outpatient (CLI) | payer MEDICARE, BC ==
[2023-01-29 12:24] LABS: African American GFR (CKD) >90 (>60 ml/min/1.73 sqM); Blood Urea Nitrogen 10 mg/dL (7-17); Non-African American GFR(CKD) 78 (>60 ml/min/1.73 sqM)
--- NOTE | 2023-01-30 17:37 | CT ---
EXAMINATION TYPE: CT ChestAbdPelvis w con DATE OF EXAM: 01/29/2023 INDICATION: obs for mets. hx of large B cell lymphoma COMPARISON: 11/01/2022 CT DLP: 1387.80 mGycm CONTRAST: Performed with Oral Contrast and with IV Contrast, patient injected with 100 mL of Isovue 300. TECHNIQUE: Axial images at 5 mm thick sections. Reconstructed images in the coronal plane. Delayed images through the kidneys. FINDINGS: CT CHEST: Portion of the thyroid visualized is normal. Lung elena appear clear. No enlarged mediastinal or hilar adenopathy is evident. Borderline size right hilar lymph node may be present 1.0 cm. The ascending aorta diameter at the level of the main pulmonary artery is 4.0 cm. The main pulmonary artery diameter at the bifurcation is 2.[address] ABDOMEN: Liver: Normal Spleen: Normal Pancreas: Normal Adrenal glands: The adrenal glands are normal. Gallbladder: Normal Kidneys: No masses are evident. No hydronephrosis is present. No cysts are present. Aorta: Normal Inferior vena cava: Normal. CT PELVIS: Loops of bowel within the abdomen and pelvis are normal. There are loops of bowel which are incom pletely distended or lack oral contrast limiting their evaluation. Appendix: Not visualized. No dilated tubular structure or inflammatory changes evident. Urinary bladder: Normal. Genitourinary structures: Uterus is absent. Adnexa appear normal. Osseous structures: No suspicious lytic or sclerotic lesions. Lymphadenopathy: No enlarged adenopathy is evident within the mediastinum. No periaortic or retrocava l adenopathy is evident. No inguinal adenopathy is evident. No suspicious pelvic adenopathy. IMPRESSIONS: 1. No suspicious change to suggest recurrent or metastatic lymphoma.
== END | disposition home or self-care (01) ==
LOC: RADCTMAIN 11:48
PROVIDERS: ATTEND Internal Medicine Hematology & Oncology
DX: C83.89 Other non-follicular lymphoma, extranodal and solid organ sites (principal)
CPT/HCPCS: 82565; 84520; 71260; 74177; 36415; Q9967

== ENCOUNTER → 2023-07-30 | Outpatient (CLI) | payer MEDICARE, BC ==
[2023-07-30 10:32] LABS: African American GFR (CKD) 70 (>60 ml/min/1.73 sqM); Blood Urea Nitrogen 20 mg/dL (7-17); Non-African American GFR(CKD) 61 (>60 ml/min/1.73 sqM)
--- NOTE | 2023-08-02 12:35 | CT ---
EXAMINATION TYPE: CT ChestAbdPelvis w con DATE OF EXAM: 07/30/2023 INDICATION: lymphoma COMPARISON: 01/29/2023 CT DLP: 1603 mGycm CONTRAST: Performed with Oral Contrast and with IV Contrast, patient injected with 100 mL of Isovue 300. TECHNIQUE: Axial images at 5 mm thick sections. Reconstructed images in the coronal plane. Delayed images through the kidneys. FINDINGS: CT CHEST: Portion of the thyroid visualized is normal. No suspicious lung nodules or focal infiltrates are present. No enlarged mediastinal or hilar adenopathy is evident. The ascending aorta diameter at the level of the main pulmonary artery is 4.0 cm. The main pulmonary artery diameter at the bifurcation is 2.[address] ABDOMEN: Liver: Normal Spleen: Normal Pancreas: Normal Adrenal glands: The adrenal glands are normal. Gallbladder: Normal Kidneys: No masses are evident. No hydronephrosis is present. No cysts are present. Delayed images were obtained through the kidneys, which remain unremarkable. Aorta: Vascular calcification is within the aorta. Inferior vena cava: Normal. CT PELVIS: Loops of bowel within the abdomen and pelvis are normal. There are loops of bowel which are incom pletely distended or lack oral contrast limiting their evaluation. Appendix: Not identified. No dilated tubular structure or inflammatory change evident. Urinary bladder: Normal. Genitourinary structures: Uterus and ovaries are not identified. Osseous structures: No suspicious lytic or sclerotic lesions. Adenopathy: No suspicious adenopathy is evident. No mediastinal or hilar adenopathy. No suspicious ax illary adenopathy lingular adenopathy. No retrocaval periaortic or retrocrural adenopathy. No suspici ous mesenteric adenopathy. Sciatic notch iliac chain and inguinal regions appear normal. IMPRESSION: 1. No suspicious adenopathy to suggest recurrent or metastatic lymphoma.
== END | disposition home or self-care (01) ==
LOC: RADPROMAIN 09:16
PROVIDERS: ATTEND Internal Medicine Hematology & Oncology
DX: K21.9 Gastro-esophageal reflux disease without esophagitis (principal); C83.39 Diffuse large B-cell lymphoma, extranodal and solid organ sites; K59.03 Drug induced constipation; K12.30 Oral mucositis (ulcerative), unspecified
CPT/HCPCS: 82565; 84520; 36415 ×2; 71260; 74177; J1642; Q9967

== ENCOUNTER → 2024-01-28 | Outpatient (CLI) | payer MEDICARE, BC ==
[2024-01-28 11:20] LABS: African American GFR (CKD) >90 (>60 ml/min/1.73 sqM); Blood Urea Nitrogen 20 mg/dL (7-17); Non-African American GFR(CKD) 85 (>60 ml/min/1.73 sqM)
--- NOTE | 2024-01-28 13:19 | CT ---
EXAMINATION TYPE: CT ChestAbdPelvis w con CT DLP: 1748.2 mGycm, Automated exposure control for dose reduction was used. DATE OF EXAM: 01/28/2024 1:00 PM COMPARISON: Multiple CT Chest Abdomen Pelvis With most recent 07/30/2023 CLINICAL INDICATION:Female, 88 years old with history of C83.39 LYMPHOMA, K21.9 GERD, K12.30 STOMATIT IS; PHH, nonhodgkins lymphoma left 4th rib Technique: Multiple axial images of the chest, abdomen, and pelvis were obtained following the intrav enous administration of 100 mL Isovue-300 . Oral contrast was administered. Two-dimensional coronal a nd sagittal reconstructions were obtained. FINDINGS: LUNGS: Minimal patchy dependent atelectasis bilateral lung bases is present. There is no concerning n ew greater than 5 mm parenchymal mass or nodule identified. Stable left apical 3 mm pulmonary nodule. There is no pleural effusion or pneumothorax seen. The tracheobronchial tree is patent. MEDIASTINUM: No pathological enlarged lymph nodes greater than 1 cm short axis. No cardiomegaly or pe ricardial effusion is seen. No aortic aneurysm identified. Coronary artery calcification is redemonstrated along with calcification at the level of the mitral v alve. OTHER: Stable right subclavian Mediport catheter partially imaged. No recurrent suspicious mass in th e left breast. Stable sclerosis to the anterior left fourth rib. Degenerative changes of the left ella ulder. LIVER/GB: No significant abnormality is appreciated. PANCREAS: No significant abnormality is seen. SPLEEN: No significant abnormality is seen. ADRENALS: No significant abnormality is seen. KIDNEYS: No significant abnormality is seen. BOWEL: Oral contrast reaches level of the left colon. No suspicious small or large bowel dilatation. GENITAL ORGANS: Uterus is surgically absent. Remnant normal size ovaries are redemonstrated. Scattere d small bilateral pelvic phleboliths are again seen. LYMPH NODES: No new greater than 1cm abdominal or pelvic lymph nodes are appreciated. OSSEOUS STRUCTURES: S-shaped scoliosis redemonstrated. Multilevel spurring in the spine. Facet arthro azam lower lumbar levels. Multilevel disc space narrowing and endplate sclerosis in the lumbar spine redemonstrated. Moderate joint space loss right hip and severe joint space loss with subchondral cys tic changes left hip is again seen. No aggressive osseous lesion. OTHER: Overlying horizontal sutures along the rectus muscles in the pelvis redemonstrated. Tiny fat-c ontaining umbilical hernia redemonstrated. Mild to moderate calcified plaque in the distal aorta exte nds into branch vessels. No abdominal aortic aneurysm. IMPRESSION: No suspicious adenopathy to suggest recurrent or metastatic lymphoma.
== END | disposition home or self-care (01) ==
LOC: RADPROMAIN 10:30
PROVIDERS: ATTEND Internal Medicine Hematology & Oncology
DX: C83.39 Diffuse large B-cell lymphoma, extranodal and solid organ sites (principal); K21.9 Gastro-esophageal reflux disease without esophagitis; K59.03 Drug induced constipation; K12.30 Oral mucositis (ulcerative), unspecified
CPT/HCPCS: 82565; 84520; 71260; 74177; 36415; J1642; Q9967